=== PATIENT | female | born 1950 | race Caucasian/White ===

== ENCOUNTER 2023-07-15 12:06 | Outpatient (CLI) | payer MEDICARE | END 2023-07-15 12:07 | disposition home or self-care (01) | LOC: CSHMAMMO 12:06 | PROVIDERS: ATTEND Student in an Organized Health Care Education/Training Program | DX: Z12.31 Encounter for screening mammogram for malignant neoplasm of breast (principal); Z80.3 Family history of malignant neoplasm of breast | CPT/HCPCS: 77063; 77067 ==

== ENCOUNTER 2025-08-04 09:01 | Outpatient (CLI) | payer MEDICARE | END 2025-08-04 09:02 | disposition home or self-care (01) | LOC: CSHMAMMO 09:01 | PROVIDERS: ATTEND Student in an Organized Health Care Education/Training Program | DX: N63.23 Unspecified lump in the left breast, lower outer quadrant (principal); N63.21 Unspecified lump in the left breast, upper outer quadrant | CPT/HCPCS: 76642; 77066; G0279 ==

== ENCOUNTER → 2025-08-13 | Day surgery (SDC) | payer MEDICARE | LOC: CSHULT 11:59 | PROVIDERS: ATTEND Student in an Organized Health Care Education/Training Program | PROC: 0H9U3ZX Drainage of Left Breast, Percutaneous Approach, Diagnostic (ICD-10-PCS; principal; 2025-08-13) | DX: C50.512 Malignant neoplasm of lower-outer quadrant of left female breast (principal) | CPT/HCPCS: 19083; A4648; 88305; 88342 ==

== ENCOUNTER 2025-08-31 09:51 | Outpatient (CLI) | payer MEDICARE ==
[2025-08-31 13:08] LABS: #Basophils 0.03 10x3/uL (0.0-0.2); #Eosinophils 0.07 10x3/uL (0.0-0.5); #Monocytes 0.53 10x3/uL (0.0-1.1); #Neutrophils 3.72 10x3/uL (1.5-8.4); %Basophils 0.4 % (0.0-2.0); %Eosinophils 0.9 % (0.0-6.0); %Lymphocytes 41.3 % (18.0-47.0); %Monocytes 7.1 % (0.0-10.0); %Neutrophils 50.2 % (40.0-75.0); Hematocrit 39.6 % (34.9-44.5); Hemoglobin 13.3 g/dL (12.0-15.5); Mean Corpuscular Hemoglobin 30.1 pg (27.0-33.0); Mean Corpuscular Volume 89.6 fL (81.6-98.3); Platelet Count 218 10x3/uL (150-450); Red Blood Cell (RBC) Count 4.42 10x6/uL (3.90-5.03); White Blood Cell (WBC) Count 7.43 10x3/uL (3.5-10.5)
== END 2025-08-31 09:52 | disposition home or self-care (01) ==
LOC: CSHLAB 09:51
PROVIDERS: ATTEND Surgery
DX: Z01.818 Encounter for other preprocedural examination (principal); C50.912 Malignant neoplasm of unspecified site of left female breast
CPT/HCPCS: 85025; 93005; 93010

== ENCOUNTER 2025-09-03 06:00 | Day surgery (SDC) | payer MEDICARE | END 2025-09-03 12:26 | disposition home or self-care (01) | LOC: CSHMAMMO 06:00 | PROVIDERS: ATTEND Surgery | PROC: BH41ZZZ Ultrasonography of Left Breast (ICD-10-PCS; principal; 2025-09-03) | DX: C50.912 Malignant neoplasm of unspecified site of left female breast (principal) | CPT/HCPCS: 19285 ==

== ENCOUNTER 2025-09-24 11:04 | Day surgery (SDC) | payer MEDICARE ==
[2025-09-23 10:22] VITALS: BMI 27.4
[2025-09-24] MEDS ORDERED: Bupivacaine/Epinephrine 0.25% 30 ML VIAL ONE (11:24)
[2025-09-24] MEDS ORDERED: CEFAZOLIN 2 GM VIAL ONE (11:24)
[2025-09-24] MEDS ORDERED: Lidocaine 1% PF 5 ML VIAL ONE (12:00)
[2025-09-24] MEDS ORDERED: Glycopyrrolate 0.2 MG/ML 5 ML SYRINGE ONE (12:00)
[2025-09-24] MEDS ORDERED: PROPOFOL 20 ML ONE (12:00)
[2025-09-24] MEDS ORDERED: Ketorolac Tromethamine 30 MG (1 mL) VIAL ONE (12:54)
[2025-09-24] MEDS ORDERED: HYDROcodone/Acetaminophen 5/325 mg Tablet ONE (13:32)
== END 2025-09-24 14:25 | disposition home or self-care (01) ==
LOC: CSHSDC 11:04
PROVIDERS: ATTEND Surgery
PROC: 0HBU0ZZ Excision of Left Breast, Open Approach (ICD-10-PCS; principal; 2025-09-24)
DX: N62 Hypertrophy of breast (principal); N60.82 Other benign mammary dysplasias of left breast; C50.912 Malignant neoplasm of unspecified site of left female breast; I10 Essential (primary) hypertension; F32.9 Major depressive disorder, single episode, unspecified; Z87.891 Personal history of nicotine dependence; Z98.51 Tubal ligation status; Z98.49 Cataract extraction status, unspecified eye; Z90.710 Acquired absence of both cervix and uterus; Z88.6 Allergy status to analgesic agent; Z88.1 Allergy status to other antibiotic agents; Z17.0 Estrogen receptor positive status [ER+]; Z17.21 Progesterone receptor positive status; Z17.32 Human epidermal growth factor receptor 2 negative status; Z79.899 Other long term (current) drug therapy
CPT/HCPCS: 19301; C1713; J1885; J2704; 88307; 88342